=== PATIENT | female | born 1955 | race Caucasian/White ===

== ENCOUNTER 2018-10-26 11:54 | Emergency (ER) | payer SELFPAY ==
--- NOTE | 2018-10-26 12:30 | ED PDOC ---
HPI: Female Pain Time Seen by Provider: 10/26/18 12:13 Chief Complaint (Nursing): Female Genitourinary Chief Complaint (Provider): Female Genitourinary History Per: Patient History/Exam Limitations: no limitations Onset/Duration Of Symptoms: Days (x1) Associated Symptoms: Urinary Symptoms (Dysuria), Other (Lower abdominal pain). denies: Nausea, Vomiting, Diarrhea Additional Complaint(s): 63 y/o female presents to ER for evaluation of pain with urination and lower abdominal pain onset 1 day ago. Patient denies any nausea, vomiting, diarrhea, taking medicine for pain or history of UTI or kidney problems. PMD: None provided Past Medical History Reviewed: Historical Data, Nursing Documentation Vital Signs: Last Vital Signs Temp 97.9 F 10/26/18 11:58 Pulse 59 L 10/26/18 11:58 Resp 18 10/26/18 11:58 BP 150/69 10/26/18 11:58 Pulse Ox 98 10/26/18 11:58 - Medical History PMH: Anxiety, Gall Bladder Disease, HTN - Surgical History Surgical History: Cholecystectomy - Family History Family History: States: Unknown Family Hx - Social History Current smoker - smoking cessation education provided: Yes Alcohol: Social Drugs: Denies - Home Medications Home Medications: Ambulatory Orders Medication Instructions Recorded Nitrofurantoin Macrocrystals 100 mg PO BID #9 cap 10/26/18 [Macrobid] Phenazopyridine HCl [Pyridium] 100 mg PO TID #6 tablet 10/26/18 - Allergies Allergies/Adverse Reactions: Allergies Allergy/AdvReac Type Severity Reaction Status Date / Time No Known Allergies Allergy Verified 10/26/18 12:19 Review of Systems ROS Statement: Except As Marked, All Systems Reviewed And Found Negative Gastrointestinal: Positive for: Abdominal Pain (lower). Negative for: Nausea, Vomiting, Diarrhea Genitourinary Female: Positive for: Dysuria Physical Exam - Reviewed Nursing Documentation Reviewed: Yes Vital Signs Reviewed: Yes - Physical Exam Appears: Positive for: Non-toxic, No Acute Distress Head Exam: Positive for: ATRAUMATIC, NORMOCEPHALIC Skin: Positive for: Normal Color, Warm, Dry Neck: Positive for: Normal, Painless ROM, Supple Cardiovascular/Chest: Positive for: Regular Rate, Rhythm. Negative for: Murmur Respiratory: Positive for: Normal Breath Sounds. Negative for: Respiratory Distress Gastrointestinal/Abdominal: Positive for: Tenderness (Suprapubic). Negative for: Guarding, Rebound Extremity: Positive for: Normal ROM. Negative for: Pedal Edema, Deformity Neurologic/Psych: Positive for: Alert, Oriented (x3) - ECG O2 Sat by Pulse Oximetry: 98 (RA) Pulse Ox Interpretation: Normal Medical Decision Making Medical Decision Makin MDM: impression is UTI --UA --Will consider blood work and imaging if UA is normal Scribe Attestation: Documented by Brooke Schrader, acting as a scribe for Jessenia Dooley MD. Provider Scribe Attestation: All medical record entries made by the Scribe were at my direction and personally dictated by me. I have reviewed the chart and agree that the record accurately reflects my personal performance of the history, physical exam, medical decision making, and the department course for this patient. I have also personally directed, reviewed, and agree with the discharge instructions and disposition. Disposition - Clinical Impression Clinical Impression: Urinary tract infection - Disposition Disposition: Routine/Home Disposition Time: 14:20 Condition: IMPROVED Additional Instructions: Take medications as prescribed. Follow up with primary medical doctor in 3 to 5 days. Return to the emergency department if symptoms worsen or of new symptoms develop including fever, back pain, nausea, vomiting etc. Prescriptions: Nitrofurantoin Macrocrystals [Macrobid] 100 mg PO BID #9 cap Phenazopyridine HCl [Pyridium] 100 mg PO TID #6 tablet Instructions: Urinary Tract Infection, Adult (DC) Forms: [employer] (Bulgarian) Print Language: MONTSERRATIAN
[2018-10-26 13:24] LABS: SQUAMOUS EPITHIAL 1 /hpf (0-5); URINE BACTERIA RARE (<OCC); URINE BILIRUBIN NEGATIVE (NEGATIVE); URINE CLARITY CLOUDY (Clear); URINE COLOR YELLOW (YELLOW); URINE GLUCOSE (UA) NEG (NEGATIVE); URINE PROTEIN 100 mg/dL (NEGATIVE); URINE UROBILINOGEN 0.2-1.0 mg/dL (0.2-1.0)
[2018-10-26 13:26] LABS: URINE BLOOD LARGE (NEGATIVE); URINE LEUKOCYTE ESTERASE SMALL Leu/uL (Negative)
[2018-10-26 13:48] VITALS: BP 150/79; PULSE 50; RESP 20
[2018-10-26 13:57] VITALS: TEMP 98.1
[2018-10-28 14:21] VITALS: O2SAT 98
== END 2018-10-26 13:56 | disposition home or self-care (01) ==
LOC: H.ER 11:54
DX: N39.0 Urinary tract infection, site not specified (principal)